=== PATIENT | female | born 1985 | race Two or more races ===

== ENCOUNTER 2022-02-07 12:53 | Emergency (ER) | payer OTHER ==
[~2022-02-07] VITALS: Ht 157.5 cm; Wt 68.0 kg
== END 2022-02-07 16:17 | disposition home or self-care (01) ==
LOC: ER 12:53
DX: J06.9 Acute upper respiratory infection, unspecified (principal); E87.6 Hypokalemia; Z20.822 Contact with and (suspected) exposure to COVID-19